=== PATIENT | male | born 1950 | race Caucasian/White ===

== ENCOUNTER 2018-10-22 15:08 | Emergency (ER) | payer MEDICARE ==
[~2018-10-22] VITALS: Ht 175.3 cm; Wt 111.8 kg
[2018-10-22 19:12] VITALS: BP 212/98
== END 2018-10-22 19:44 | disposition home or self-care (01) ==
LOC: ED 16:51
DX: H53.133 Sudden visual loss, bilateral (principal); I65.02 Occlusion and stenosis of left vertebral artery
CPT/HCPCS: 36415; 70496; 70498; 70551; 80048; 85025; 93005; 99284; Q9967